=== PATIENT | female | born 1950 | race Caucasian/White ===

== ENCOUNTER → 2023-08-18 14:48 | Outpatient (REF) | payer MEDICARE, OTHER, SELFPAY | LOC: HWRCS 14:48 | PROVIDERS: ATTENDING PHYSICIAN Internal Medicine Cardiovascular Disease; FAMILY PHYSICIAN Family Medicine | DX: I48.0 Paroxysmal atrial fibrillation (principal) | CPT/HCPCS: 93306 ==

== ENCOUNTER 2024-12-06 17:37 | Emergency (ER) | payer MEDICARE, OTHER, SELFPAY ==
[2024-12-06 17:42] VITALS: BP 152/68
[2024-12-06 20:57] VITALS: BMI 37.7
[2024-12-06 21:05] VITALS: BP 142/70
--- NOTE | 2024-12-06 21:06 | EDRN ---
Pt was [place] the [place] and she came down a flight of steps that came to a landing which then turns. Pt didn't see last step to landing and 'flew across the aisle way into the seats.' Pt says she heard her R forearm snap. No head injury/loc.
Pt was dizzy initially but that has resolved.
--- NOTE | 2024-12-06 21:44 | ED.GENMED ---
History of Present Illness
General
Chief Complaint: Musculo-Skeletal Complaint
Time Seen by Provider: 12/06/24 21:21
History of Present Illness
History of Present Illness:
74-year-old female presents to the emergency department for evaluation of right forearm pain after falling at the movie theater today. She fell into seats in front of her and braced her fall with the right arm. Denies head strike. Denies shoulder
or elbow pain. No distal paresthesias. She is on Xarelto
Past History
Past History
ED Past Medical History: HTN, NIDDM and Other (ms )
ED Past Surgical History: Other
Social History
Tobacco: Non-smoker
Alcohol: None
Drug: None
Personal: Other
Living: with family
Employment: Other
Family History
Family History: Hypertension
Review of Systems
Review of Systems
Allergies reviewed?: Yes
All Other Systems: ROS reviewed and negative except as documented in HPI and ROS
Phy Exam
Physical Exam
Physical Exam:
GEN: Well appearing, NAD, WDWN
HEENT: Oral mucosa moist, no scleral icterus
Cardiac: Regular rate
Lung: No respiratory distress, no tachypnea
MSK: Moderate swelling to the right midshaft forearm, strong radial pulse
Skin: Good color, no pallor or jaundice, no rashes
Neuro: AO x3, moves all extremities freely
Psych: Calm, cooperative
Course
Orders/Labs/Results
Orders:
Orders
12/06/24 17:45
CR Forearm - Right 2 View Urgent
Comment:
Reason For Exam: pain
Vital Signs
Initial and Last Documented VS:
Initial Vital Signs
Temp Pulse Resp BP Pulse Ox
98.1 F 72 16 152/68 97
12/06/24 17:42 12/06/24 17:42 12/06/24 17:42 12/06/24 17:42 12/06/24 17:42
Last Documented Vital Signs
Temp Pulse Resp BP Pulse Ox
98.1 F 85 14 142/70 97
12/06/24 17:42 12/06/24 21:05 12/06/24 21:05 12/06/24 21:05 12/06/24 21:49
Procedures
Splinting/Sling Placement
R forearm:
Procedure completed by: Sandro Ramos PA-C
Pre-splint extermity exam: neurovascular intact
Type of splint: sugar-tong
Splint material: fiberglass
Type of sling: sling fitted
Normal distal neurovascular exam?: Yes
MDM/Problems Addressed
MDM/Problems Addressed:
Imaging reviewed with orthopedics on-call, no need for close reduction as patient will need open reduction, will advise patient to hold Xarelto in anticipation of surgery earlier in the week, follow-up with Ortho Monday
*Pulse Oximetry
SaO2: 97
Oxygen Mode of Delivery: Room air
Patient hypoxic: no
*Critical Care Note
Total Time (30-74mins, 75-104mins- exclusive of procedures): Not Applicable
ED Attending Note
-
Portions of this chart may have been created with voice recognition software.� Occasional wrong word or��sound alike� substitutions may have occurred due to the inherent limitations of voice recognition software.
Discharge Plan
Departure
Patient Disposition: Home (Routine Discharge)
Date of Disposition: 12/06/24
Time of Disposition: 21:46
Patient with high blood pressure during this ER visit?: No
Discharge Problem:
Closed fracture of shaft of right radius and ulna
Instructions: Forearm fracture
Prescriptions:
No Action
tizanidine 4 MG tablet
4 mg PO HS
omeprazole 40 MG capsule,delayed release(DR/EC)
40 mg PO DAILY
irbesartan-hydrochlorothiazide 1 EACH tablet
1 ea PO QPM
glimepiride 4 MG tablet
4 mg PO BID
amlodipine 5 MG tablet
5 mg PO DAILY Qty: 60 0RF
Xarelto 20 MG tablet
20 mg PO QPM Qty: 90 0RF
metoprolol succinate 50 MG tablet extended release 24 hr
50 mg PO BID
escitalopram oxalate 5 MG tablet
5 mg PO BID
Centrum Silver 1 EACH tablet
1 tab PO DAILY
propafenone 225 MG tablet
225 mg PO TID
pravastatin 40 mg Tablet
40 mg PO HS
cholecalciferol (vitamin D3) [Vitamin D3] 25 mcg (1,000 unit) Capsule
25 mcg PO DAILY
Ozempic 1 mg/dose (4 mg/3 mL) Pen Injector
1 mg SC QWEEK
Bio Flex
2 tab PO DAILY
collagen
1 PO DAILY
Patient Comments:
pt says she takes 1 scoop
cyanocobalamin (vitamin B-12)
1 tab PO DAILY
Patient Comments:
pt does not know dosage
Referrals:
Cyrus Hicks MD [Active, Orthopedics] - 12/09/24
Activity Restrictions/Additional Instructions:
DO NOT TAKE YOUR BLOOD THINNER UNTIL FURTHER DIRECTION IS GIVEN TO YOU BY ORTHOPEDICS
Interventions
Interventions:
*Risk Screen - Suicide Last Done: 12/06/24 17:42
*General Assessment Last Done: 12/06/24 20:57
*Neglect/Abuse Screening Last Done: 12/06/24 17:45
*ED- Fall Risk Assessment Last Done: 12/06/24 20:57
*Nursing Disposition Last Done: 12/06/24 22:07
ED-Musculoskeletal Assessment Last Done: 12/06/24 21:16
Discharge Date and Time
Discharge Date/Time: 12/06/24 22:07
Print Language: BAHAMIAN
== END 2024-12-06 22:07 | disposition home or self-care (01) ==
LOC: EMR 17:37
PROVIDERS: EMERGENCY PHYSICIAN Emergency Medicine; FAMILY PHYSICIAN Family Medicine
DX: S52.201A Unspecified fracture of shaft of right ulna, initial encounter for closed fracture (principal); S52.301A Unspecified fracture of shaft of right radius, initial encounter for closed fracture; W19.XXXA Unspecified fall, initial encounter; Y92.26 Movie house or cinema as the place of occurrence of the external cause; I10 Essential (primary) hypertension; E11.9 Type 2 diabetes mellitus without complications; Z79.01 Long term (current) use of anticoagulants; Z82.49 Family history of ischemic heart disease and other diseases of the circulatory system
CPT/HCPCS: 99283; 29125; 73090

== ENCOUNTER 2024-12-10 06:04 | Day surgery (SDC) | payer MEDICARE, OTHER, SELFPAY ==
[2024-12-10] VITALS (11 sets, daily range): BP systolic 119–145; BP diastolic 42–68; BMI 37.1
[2024-12-10] MEDS: CELEBREX 200 MG PO (06:34)
[2024-12-10] MEDS: TYLENOL 1000 MG PO (06:34)
[2024-12-10] MEDS: NORMOSOL-R/PLASMALYTE-A 1000 IV (06:45)
[2024-12-10 06:50] LABS: Glucose - Point of Care 123 mg/dl (70-99)
[2024-12-10 07:15] LABS: ALT (SGPT) 21 U/L (0-35); AST (SGOT) 27 U/L (14-36); Albumin 4.3 g/dl (3.5-5.0); Alkaline Phosphatase 63 U/L (38-126); Blood Urea Nitrogen 17 mg/dl (7-17); Calcium 9.2 mg/dl (8.4-10.2); Carbon Dioxide 25 mmol/L (22-30); Chloride 104 mmol/L (98-107); Estimated Creatinine Clearance 91 ml/min; Glucose 116 mg/dl (70-99); Potassium 4.2 mmol/L (3.5-5.1); Sodium 137 mmol/L (135-145); Total Protein 7.3 g/dl (6.3-8.2); eGFR > 60.00
[2024-12-10 09:32] LABS: Glucose - Point of Care 141 mg/dl (70-99)
[2024-12-10] MEDS: SUBLIMAZE 50 MCG IV (09:40)
[2024-12-10] MEDS: ZOFRAN 4 MG IV (10:01)
== END 2024-12-10 12:30 | disposition home or self-care (01) ==
LOC: SDS 06:04
PROVIDERS: ATTENDING PHYSICIAN Orthopaedic Surgery
DX: S52.321A Displaced transverse fracture of shaft of right radius, initial encounter for closed fracture (principal); S52.221A Displaced transverse fracture of shaft of right ulna, initial encounter for closed fracture; W19.XXXA Unspecified fall, initial encounter
CPT/HCPCS: 25575; 80053; 82962; 93005; C1713